=== PATIENT | female | born 1940 | race Caucasian/White ===

== ENCOUNTER 2018-04-09 05:36 | Observation (INO) ==
[2018-04-09] MEDS ORDERED: Metoprolol Tartrate 25 MG Tablet PO SCH (06:15)
[2018-04-09] MEDS ORDERED: Heparin - SQ 10,000 UNITS/ML Vial SQ SCH (06:15)
[2018-04-09] MEDS ORDERED: Chlorhexidine Gluconate 2% 1 Pack (2 Cloths) TOPICAL SCH (06:15)
[2018-04-09] MEDS ORDERED: Hypromellose 0.3% Opth Gel 10 GM Bottle ONE (06:56)
[2018-04-09] MEDS ORDERED: HYDROmorphone PF Inj 2 MG/ML Vial ONE (06:56)
[2018-04-09] MEDS ORDERED: fentaNYL Citrate Inj 250 MCG/5 ML Ampul ONE (06:57)
[2018-04-09] MEDS ORDERED: Sodium Chlor 0.9% Inj 500 ML IV.SIG SCH (07:00)
[2018-04-09] MEDS ORDERED: Lidocaine 1%/Epinephrine 1:100,000 Inj 20 ML Vial INFILTRATN ONE ×2 (09:22→13:45)
[2018-04-09] MEDS ORDERED: fentaNYL Citrate Inj 100 MCG/2 ML Ampul ONE (09:31)
[2018-04-09] MEDS ORDERED: Morphine Inj 4 MG/ML Vial ONE ×2 (09:31)
[2018-04-09] MEDS ORDERED: Methylene Blue Inj 10 MG/ML Vial TOPICAL ONE (11:05)
[2018-04-09] MEDS ORDERED: Lidocaine PF 1% Inj 5 ML Syringe INFILTRATN ONE (12:00)
[2018-04-09] MEDS ORDERED: Labetalol HCl Inj 100 MG/20 ML Vial IV.CONT ONE (12:00)
[2018-04-09] MEDS ORDERED: LORazepam 0.5 MG Tablet PO PRN (12:38)
[2018-04-09] MEDS ORDERED: KCL 20 mEq/D5W/NaCl 0.45% Inj 1,000 ML ONE (12:45)
[2018-04-09] MEDS: KCL 20 mEq/D5W/NaCl 0.45% Inj 1,000 ML IV.CONT SCH (13:25)
[2018-04-09] MEDS: Ketorolac Inj 30 MG/ML (IVP) Vial IV.PUSH SCH (18:12)
[2018-04-09] MEDS: Gabapentin 300 MG Capsule PO SCH (21:08)
[2018-04-10] MEDS: Ketorolac Inj 30 MG/ML (IVP) Vial IV.PUSH SCH ×2 (00:10→05:50)
[2018-04-10] MEDS: KCL 20 mEq/D5W/NaCl 0.45% Inj 1,000 ML IV.CONT SCH (00:14)
[2018-04-10 07:10] LABS: Baso % (Auto) 0.3 % (0.0-2.0); Eos % (Auto) 0.6 % (0.0-4.0); Hematocrit 34.6 % (35.0-46.0); Hemoglobin 11.4 gm/dL (11.6-15.3); Lymph % (Auto) 11.5 % (9.0-44.0); Mean Corpuscular HGB Conc 32.9 % (32.0-36.0); Mean Corpuscular Volume 94.3 fL (80.0-100.0); Mean Platelet Volume 9.1 fL (7.0-11.0); Mono # (Auto) 0.7 th/mm3 (0.0-0.9); Mono % (Auto) 7.9 % (0.0-8.0); Neut # (Auto) 6.8 th/mm3 (1.8-7.7); Neut % (Auto) 79.7 % (16.0-70.0); Platelet Count 201 th/mm3 (150-450); Red Blood Count 3.67 mil/mm3 (4.00-5.30); Red Cell Distribution Width 15.4 % (11.6-17.2); White Blood Count 8.5 th/mm3 (4.0-11.0)
[2018-04-10 07:50] LABS: Calcium 8.5 mg/dL (8.5-10.1); Carbon Dioxide 27.1 meq/L (21.0-32.0); Potassium 3.7 meq/L (3.5-5.1)
[2018-04-10] MEDS: Gabapentin 300 MG Capsule PO SCH (08:24)
--- NOTE | 2018-04-10 08:30 | P.PN ---
Subjective Interval history: c/o discomfort, fatigue c/w surgery pain adequately controlled no other c/o Physical Exam Vital signs: Vital Signs 04/09/18 13:03 04/09/18 13:15 04/09/18 13:32 Temperature 97.6 F Pulse Rate 62 58 L 61 Respiratory Rate 15 10 L 8 L Blood Pressure 150/68 H 120/60 122/56 L Pulse Oximetry 97 97 100 04/09/18 13:45 04/09/18 14:00 04/09/18 14:06 Temperature 97.8 F Pulse Rate 59 L 60 Respiratory Rate 12 12 Blood Pressure 129/59 L 122/60 Pulse Oximetry 98 99 97 04/09/18 14:49 04/09/18 15:58 04/09/18 16:12 Temperature 98.0 F Pulse Rate 64 61 Respiratory Rate 18 20 Blood Pressure 121/67 Pulse Oximetry 04/09/18 19:18 04/09/18 20:00 04/09/18 20:57 Temperature 98.5 F Pulse Rate 69 78 Respiratory Rate 20 17 Blood Pressure 114/58 L Pulse Oximetry 98 04/10/18 00:00 04/10/18 00:09 04/10/18 04:00 Temperature 97.7 F Pulse Rate 69 71 Respiratory Rate 16 Blood Pressure 122/62 Pulse Oximetry 98 98 04/10/18 04:24 04/10/18 06:20 04/10/18 08:00 Temperature 97.8 F 98.4 F Pulse Rate 80 77 Respiratory Rate 17 18 18 Blood Pressure 113/63 121/63 Pulse Oximetry 97 Intake & Output 04/09/18 04/10/18 04/10/18 18:59 06:59 18:59 Intake Total 2300 / 2300 1470 / 1470 Output Total 875 / 875 625 / 625 Balance 1425 / 1425 845 / 845 Weight 82.8 kg Intake: IV 1000 / 1000 990 / 990 D5W/1/2NS + KCL 20 mEq Inj 1, 990 / 990 000 ML @ 100 mls/hr IV.CONT . Q10H BLACK Rx#:[id number] LR 1000 mL Inj 1,000 ML @ 30 1000 / 1000 mls/hr IV.SIG .Q24H BLACK Rx#: [id number] Oral 480 / 480 Anesthesia Amount 1300 / 1300 Output: Urine 225 / 225 Estimated Blood Loss 200 / 200 Urine Amount (Catheter) 450 / 450 625 / 625 3-way Urethral 450 / 450 625 / 625 Other: Date of Last Bowel Movement 04/08/18 04/08/18 - Constitutional no acute distress - Routine HEENT Exam Eye: Present: PERRL - Routine Respiratory Exam Present: CTA bilaterally - Routine Cardiovascular Exam Present: RRR - Routine Abdominal Exam Present: soft Comments: Incisions clean, dry - Routine Extremities Exam Present: pulses intact - Routine Neurological Exam Present: alert, oriented X3 - Urinary Catheter Management 3-way Urethral Cath placed during this visit: yes, but has since been removed by the nurse Reason for continuing: Not indwelling catheter Insertion date: 04/09/18 Insertion time: 08:25 Removal date: 04/10/18 Removal time: 06:00 Results - Labs CBC & Chem 7: 04/10/18 05:18 04/10/18 05:18 Laboratory Results - last 24 hr 04/10/18 04/10/18 05:18 05:18 WBC 8.5 RBC 3.67 L Hgb 11.4 L Hct 34.6 L MCV 94.3 MCH 31.0 MCHC 32.9 RDW 15.4 Plt Count 201 D MPV 9.1 Neut % (Auto) 79.7 H Lymph % (Auto) 11.5 [place] % (Auto) 7.9 Eos % (Auto) 0.6 Baso % (Auto) 0.3 Neut # (Auto) 6.8 Lymph # (Auto) 1.0 [place] # (Auto) 0.7 Eos # (Auto) 0.0 Baso # (Auto) 0.0 WBC Differential . Differential Comment Auto diff final Sodium 144 Potassium 3.7 Chloride 110 H Carbon Dioxide 27.1 Anion Gap 7 BUN 14 Creatinine 0.76 Estimated GFR 74 L Random Glucose 108 H Calcium 8.5 Assessment and Plan - Plan A: POD#1 doing well in early post-op period surgical findings & preliminary pathology reviewed activities & restrictions discussed q&A, she understands P: d/c to home today, f/u 2 weeks, resume prior meds rx percocet, call our office with any questions/problems
[2018-04-10] MEDS ORDERED: Lisinopril 10 MG Tablet PO SCH (09:00)
[2018-04-10] MEDS ORDERED: Sertraline 100 MG Tablet PO SCH (09:00)
--- NOTE | 2018-04-13 08:37 | MP ---
cc: Sima Venegas MD,Cristel Eason,Martha MYLES DATE OF OPERATION: 04/09/2018 DATE OF PROCEDURE: 04/09/2018 PREOPERATIVE DIAGNOSES: 1. High-grade endometrial cancer/carcinosarcoma. 2. Enlarged uterus with central mass effect. POSTOPERATIVE DIAGNOSES: 1. High-grade endometrial cancer/carcinosarcoma. 2. Enlarged uterus with central mass effect. PROCEDURE PERFORMED: Robotic-assisted laparoscopic hysterectomy, bilateral salpingo-oophorectomy, bilateral pelvic lymph node excisional biopsies, excisional biopsy of mesenteric nodule. SURGEON: Sima Venegas MD COMMUNICATIONS INSTRUCTOR: Brijesh fitness assistant. ANESTHESIA: General endotracheal anesthesia. ESTIMATED BLOOD LOSS: 200 mL. IV FLUIDS: 2300 mL URINE OUTPUT: 450 mL. HISTORY: A 78-year-old female with postmenopausal bleeding of uncertain duration, found on exam and imaging to have a markedly enlarged uterus with an estimated 10 cm mass-like effect within the uterine cavity. Biopsy was obtained, which showed a high-grade carcinoma with features suggestive of a carcinosarcoma. Imaging did not show any overt evidence of metastatic disease. FINDINGS: On exam under anesthesia, the cervix is dilated. There is tumor visible protruding through a dilated cervical os. The uterine cavity sounded to 14 cm, and there was a moderate amount of bleeding from this preliminary examination. The uterus was symmetrically enlarged, prominent with thickening thought to be tumor related, extending down to the lower uterine segment. Tubes and ovaries grossly appeared normal. On the peritoneal surfaces, there were no overt peritoneal implants with the exception of a nodule in the mesentery, which was removed, sent for frozen section and this was benign. The peritoneal surfaces were smooth. There were no implants except for one small nodule in the mesentery that was removed, sent for frozen section and biopsy showed it to be benign. The liver, diaphragm edges were smooth. The omentum, large and small bowel and adjacent mesentery were grossly otherwise normal. The periaortic and pericaval region, there were no prominent lymph nodes, no obvious abnormality in the pelvis; however, there were several enlarged lymph nodes motion noted in the right pelvis with a single prominent lymph node in the left. Each of these lymph nodes were removed. Preliminary findings on the pathology showed the tumor in the uterus to be quite significant in size, occupying a large surface area and invading beyond 50% of the myometrium. STATEMENT OF COMPLEXITY/MODIFIER: The uterus was markedly enlarged due to tumor, which required additional time and complexity to complete the surgical objectives. Modifier should be applied accordingly. DESCRIPTION OF PROCEDURE: She was taken to the operating room and placed in dorsal lithotomy position, after general endotracheal anesthesia was administered. A timeout was undertaken. She was identified by site recognition and hospital ID bracelet, and the proposed procedure was reviewed and confirmed. She was carefully positioned in padded Harley stirrups. Her ams were padded and secured to the sides. She was further secured to the operating table with egg crate padding and tape in across chest over the shoulder fashion. All sites noted to be properly aligned with no malalignment or pressure points. She was prepped and draped in usual sterile fashion and placed in the high lithotomy position. Exam under anesthesia was performed with findings as described above. The cervix was grasped. Uterine cavity was sounded. The cervix was already dilated and allowed placement of a large VCare manipulator, which was inserted and secured in usual fashion. Aguilar catheter was placed in the bladder. She was returned to the low lithotomy position. Change of sterile gloves is undertaken. We confirmed there is an orogastric tube in stomach on suction. With manual elevation of the abdominal wall and direct laparoscopic visualization, a 5 mm cannula was placed in the left upper quadrant. Intraperitoneal placement was confirmed in an atraumatic fashion. Carbon dioxide gas was insufflated. A 12 mm cannula was placed in midline above the umbilicus, a 8 mm cannula placed in the right upper quadrant and left lateral quadrant and the original 5 mm was exchanged for an 8 mm cannula. The anatomy was surveyed with findings as described above. Peritoneal washings were obtained for cytology. She was placed in steep Trendelenburg position. The small bowel was folded back on its mesenteric root. Three Ray-Basilio sponges were placed around the root of the small bowel mesentery. The robotic system was brought into the operative field, attached in the usual fashion. Monopolar scissors, fenestrated bipolar forceps and ProGrasp manipulators were placed in arms #1, 2, and 3 respectively, and I took my place at the surgeon's console. Right round ligament, isolated, cauterized, transected. The anterior and posterior leafs of the broad ligament were opened. The right ureter was identified. The right infundibulopelvic ligament was isolated. The intervening peritoneum was opened. The infundibulopelvic ligament was isolated to the level of the pelvic brim where it was cauterized and transected. Posterior peritoneum opened along the right side of the uterus and cervix and the right vesicouterine peritoneum was dissected off the lower uterine segment and cervix, and the right uterine vessels were skeletonized, the vasculature was quite prominent and they were preliminarily cauterized. Attention was directed toward the left side, where the left round ligament was isolated, cauterized and transected. Some adhesions were taken down to mobilize the colon from its attachment to the left pelvic sidewall. Retroperitoneal dissection was continued to identify the left ureter. The left infundibulopelvic ligament was isolated, the intervening peritoneum was opened and the gonadal vessels were isolated above the level of the pelvic brim, where they were cauterized and transected. Posterior peritoneum opened along the right side of the uterus and cervix. The right uterine vessels were skeletonized and were cauterized. Inspection confirmed adequate blanching of the uterine specimen, so now the left uterine vessels were transected, and the cardinal, paracervical and uterosacral ligaments were isolated, cauterized and transected in a stepwise fashion, thereby freeing the attachments along the left side of the uterus and cervix. Attention was redirected toward the right side where the right uterine vessels were transected. The cardinal, paracervical and uterosacral ligaments were isolated, cauterized and transected in a stepwise fashion, freeing the attachments along the right side of the uterus and cervix. Circumferential colpotomy was performed, the cervix from the upper vagina. I left the surgeon's console knowing there would be difficulty delivering this large specimen transvaginally and tenaculums were placed on the cervix and the medium sized curette was used to curette the central tumor from the uterus to help reduce the size and after thorough curetting, counter traction and manipulation, the specimen was able to be delivered transvaginally, which included uterus, cervix, tubes and ovaries, and the pneumo-occluder balloon was placed in the vagina to maintain pneumoperitoneum. I returned to the surgeon's console. Instruments 1 and 3 were exchanged for needle drivers as a 0 Vicryl suture was introduced. Vaginal cuff closed starting at the left corner, full thickness closure including the posterior uterosacral ligament, posterior peritoneum and tied via instrument tie. The closure was held on countertraction as a running continuous full thickness closure was carried across the vaginal cuff to the contralateral corner were it was similarly fixed, secured, tied via instrument tie, the needle was cut and removed. The perivesical, perirectal and obturator spaces were opened on the right pelvis and similarly opened on the left pelvis and inspection was carried out and palpation of the pelvic lymph node basins as well as the periaortic and pericaval region with findings as described above. On the left side, a single prominent lymph node along the external iliac vessels was isolated and removed with bipolar cautery and sharp dissection. Careful inspection and palpation of the lymph node basin did not reveal any other prominent lymph nodes. This lymph node was placed on a Ray-Basilio sponge in the right pericolic gutter for later retrieval. In the right pelvis, there were several prominent lymph nodes on the external iliac region and 2 or 3 nodes in the obturator space. Each of these were isolated with bipolar cautery and sharp dissection. Each were removed in their entirety with an effort to spare any normal appearing lymphatics and these lymph nodes were collected and placed in the right pericolic gutter. All lymphatic basins were inspected. No residual abnormality detected. They were irrigated. There was good hemostasis. The neurovascular structures were intact and there was good peristalsis of ureters bilaterally. To assist in continued hemostasis , some hemostatic Ching powder was placed in the lymph node basins and across the vaginal cuff. It was felt that all reasonable surgical objectives had been completed. The robotic instruments were removed. The robotic system was disengaged from the operative field. I reentered the bedside under sterile condition. An EndoCatch bag was introduced to capture the lymph nodes that were combined and labeled as pelvic lymph node or pelvic lymph nodes. They were brought out through the 12 mm cannula. Next, each of the 3 Ray-Basilio sponges that were placed in the peritoneal cavity were removed. They were grasped and removed individually and each were inspected and noted to be removed in their entirety. Inspection of the peritoneal cavity revealed all sites to be hemostatic. There were no remaining foreign objects in the peritoneal cavity and preliminary counts were correct. The 12 mm defect was closed with interrupted 0 Vicryl sutures using a needle pass a fascial closure apparatus. They were tied securely which rendered the fascia completely airtight and hemostatic. The remaining cannulas were withdrawn. Carbon dioxide gas was removed; 3-0 Vicryl subcutaneous, 3-0 Vicryl subcuticular and Steri-Strips were used to close these incisions. Pelvic exam confirmed that the vaginal cuff was well supported; however, there were a couple of superficial lacerations along the vaginal sidewall, which were rendered hemostatic and reapproximated with interrupted [id number] 2-0 Vicryl sutures. The vagina was irrigated. There were no remaining foreign objects in the vagina. Sites were hemostatic and to assist in continued hemostasis, the remaining Ching powder was placed in the vaginal canal. She was returned to dorsal supine position and was pending reversal of anesthesia, when I left the operating room to precede her to the postanesthesia care unit. MD DARRYL Sahni/KARSTEN , 07:29 AM , 08:14 AM
== END 2018-04-10 12:03 | disposition home or self-care (01) ==
LOC: HSDI 05:36 → HCIN 05:36 → HSDC 05:36 → HCIN 14:12
PROVIDERS: ADMIT Obstetrics & Gynecology Gynecologic Oncology; ATTEND Obstetrics & Gynecology Gynecologic Oncology